=== PATIENT | female | born 1945 | race Caucasian/White ===

== ENCOUNTER 2019-12-04 18:21 | Observation (INO) | payer MEDICARE, SELFPAY ==
--- NOTE | ~2019-12-04 | CT_ITS ---
EXAMINATION: CT abdomen pelvis w con DATE: 12/04/2019 22:15 INDICATION: Abdominal pain and bloody diarrhea TECHNIQUE: Computed tomography (CT) of the abdomen and pelvis was performed with 100 cc Omnipaque 350 intravenous contrast. The dose-length product was 359.52 mGy-cm. Automated exposure control and iter ative reconstruction technique were employed. COMPARISON: None. FINDINGS: Lung bases are unremarkable. Heart size is normal. Large hiatal hernia. 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 No obstruction. Fatty infiltration of the liver. The spleen, pancreas, right adrenal gland and kidneys are unremarkab le. There is a 1.5 cm left adrenal mass, statistically most likely benign adenoma. Gallbladder is pre sent. There is abnormal thickening of the distal transverse and descending colon, compatible with colitis, likely infectious. No evidence for perforation. There is colonic diverticula diverticulosis without e vidence for acute diverticulitis. No lymphadenopathy. No significant vascular abnormality. There is l umbar spondylosis with grade 1 degenerative spondylolisthesis at L4-5. IMPRESSION: 1. Abnormal thickening of the distal transverse and descending colon, compatible with colitis, likely infectious. Correlate clinically. 2: Large hiatal hernia with organoaxial volvulus. Reviewed, dictated and finalized at location A[facility] IMPRESSION: 1. Abnormal thickening of the distal transverse and descending colon, compatibl e with colitis, likely infectious. Correlate clinically. 2: Large hiatal hernia with organoaxial volvulus.
[2019-12-04 19:42] VITALS: BP 150/87; PULSE 102; RESP 16; TEMP 37.6; O2SAT 98
[2019-12-04 19:55] LABS: Basophils Absolute Auto 0.1 K/mm3 (0.0-0.1); Basophils Percent Auto 0.4 % (0.2-1.2); Eosinophils Absolute Auto 0.1 K/mm3 (0-0.3); Eosinophils Percent Auto 0.3 % (0-4.4); Hematocrit 40.1 % (37.0-47.0); Hemoglobin 12.7 g/dL (12.0-15.0); Immature Granulocyte Absolute 0.08 K/mm3 (0.00-0.031); Immature Granulocyte Percent A 0.5 % (0-0.5); Lymphocytes Percent Auto 9.2 % (18.3-44.2); Mean Corpuscular HGB Conc 31.7 g/dl (32-36); Mean Corpuscular Hemoglobin 29.2 pg (26-34); Mean Corpuscular Volume 92.2 fl (80-100); Mean Platelet Volume 9.5 fl (7.4-10.4); Monocytes Percent Auto 5.8 % (2.6-8.5); Neutrophils Absolute Auto 14.5 K/mm3 (1.3-6.7); Neutrophils Percent Auto 83.8 % (45.5-73.1); Platelet Count Result 380 k/mm3 (150-375); Red Blood Count 4.35 M/mm3 (4.2-5.4); Red Cell Distribution Width 14.4 % (11.5-14.5); White Blood Count 17.3 K/mm3 (4.5-10.0)
[2019-12-04 20:03] LABS: Prothrombin Time 12.7 Seconds (11.1-14.7)
[2019-12-04 20:04] LABS: Partial Thromboplastin Time 24.1 SECONDS (22.3-36.8)
[2019-12-04 20:06] LABS: Alanine Aminotransferase 21 U/L (4-35); Albumin Level 4.5 g/dL (3.5-5.1); Alkaline Phosphatase 54 U/L (38-126); Aspartate Amino Transferase 26 U/L (14-36); Bilirubin,Total 0.4 mg/dL (0.2-1.3); Blood Urea Nitrogen 22 mg/dL (7-17); Carbon Dioxide 21 mmol/L (22-30); Chloride 99 mmol/L (98-107); Estimated CRCL calculation 34 ml/min; Estimated Glomerular Filt Rate 48; Glucose 120 mg/dL (65-105); Potassium 4.4 mmol/L (3.4-5.0); Sodium 133 mmol/L (137-145)
[2019-12-04 20:34] VITALS: BP 139/84; PULSE 86; RESP 18; TEMP 36.6; O2SAT 97
--- NOTE | 2019-12-04 20:50 | ED.GIBLEED ---
HPI - GI Bleed General Chief complaint: GI Bleed Stated complaint: RECTAL BLEEDING Time Seen by Provider: 12/04/19 20:49 Source: patient Mode of arrival: ambulatory Limitations: no limitations History of Present Illness HPI Narrative: The pt is a 74 y/o female who presents to the ED c/o diarrhea and rectal bleeding onset today. Pt states that she began to experience this a day after experiencing currently resolved diarrhea. Pt reports that she has been experiencing ABD pain for one day as well. Pt notes nothing improves or worsens her condition. Pt reports chills, nausea, and dizziness, but denies dysuria and hematuria. MD complaint: other (Rectal bleeding) Relieving factors: none Exacerbating factors: none Associated symptoms: abdominal pain (Onset one day ago), nausea and other (Diarrhea (Onset one day ago, resolved), chills, dizziness) Treatments Prior to Arrival: none Related Data Allergies Allergy/AdvReac Type Severity Reaction Status Date / Time Sulfa (Sulfonamide Allergy Intermediate RASH Verified 11/19/11 14:47 Antibiotics) Review of Systems Review of Systems: Narrative: Review of Systems Constitutional: Positive for chills. Gastrointestinal: Positive for nausea, rectal bleeding, abdominal pain onset one day ago, and resolved diarrhea onset one day ago. Genitourinary: Negative for dysuria and hematuria. Neurological: Positive for dizziness. All systems reviewed & are unremarkable except as noted in HPI and below PMFSH Past Medical History Medical History (Updated 12/05/19 @ 00:35 by Korin Hampton MD) Anemia Surgical History Surgical History (Updated 12/04/19 @ 21:11 by Jem Og) H/O: hysterectomy Social History Social History (Updated 12/04/19 @ 21:11 by Jem Og) Smoking status: Never smoker Comments PCP: Dr. Pryor Exam Narrative: Exam Narrative: Constitutional: Appears well-developed. No distress. HENT: Head: Normocephalic. Nose: Nose normal. Mouth/Throat: Oropharynx is clear and moist. Eyes: Conjunctiva are normal. Neck: Normal range of motion. Neck supple. Cardiovascular: Normal rate and regular rhythm. Pulmonary/Chest: Effort normal and breath sounds normal. Abdominal: Soft. There is no tenderness. Musculoskeletal: Normal range of motion. No edema. Neurological: Alert and oriented to person, place, and time. Skin: Skin is warm. No pallor. Psychiatric: Normal mood and affect. Course Consultations Consultation #1: Discussed with Dr. Quintana regarding CT finding. He will consult Date: 12/04/19 Time: 23:20 Consultation #2: Discussed with Dr. Venegas, who agrees to admit. Date: 12/04/19 Time: 23:35 Vital Signs Vital signs: Vital Signs Temperature 37.6 C H 12/04/19 19:42 Pulse Rate 102 H 12/04/19 19:42 Respiratory Rate 16 12/04/19 19:42 Blood Pressure 150/87 H 12/04/19 19:42 Pulse Oximetry 98 12/04/19 19:42 Temperature 36.6 C 12/04/19 20:34 Pulse Rate 82 12/05/19 00:23 Respiratory Rate 18 12/05/19 00:23 Blood Pressure 134/67 12/05/19 00:23 Pulse Oximetry 96 12/05/19 00:23 MDM - GI Bleed Lab Data Result diagrams: 12/04/19 19:48 12/04/19 19:48 Labs: Lab Results 12/04/19 12/04/19 12/04/19 Range/Units 19:48 19:48 19:48 WBC 17.3 H (4.5-10.0) K/mm3 RBC 4.35 (4.2-5.4) M/mm3 Hgb 12.7 (12.0-15.0) g/dL Hct 40.1 (37.0-47.0) % MCV 92.2 (80-100) fl MCH 29.2 (26-34) pg MCHC 31.7 L (32-36) g/dl RDW 14.4 (11.5-14.5) % Plt Count 380 H (150-375) k/mm3 MPV 9.5 (7.4-10.4) fl Immature Gran % (Auto) 0.5 (0-0.5) % Neut % (Auto) 83.8 H (45.5-73.1) % Lymph % (Auto) 9.2 L (18.3-44.2) % Barry % (Auto) 5.8 (2.6-8.5) % Eos % (Auto) 0.3 (0-4.4) % Baso % (Auto) 0.4 (0.2-1.2) % Lymph # (Auto) 1.60 (0.9-3.2) K/mm3 Barry # (Auto) 1.0 H (0.1-0.6) K/mm3 Eos # (Auto) 0.1 (0-0.3) K/mm3 Baso # (Auto) 0.1 (0
[2019-12-04 21:32] VITALS: BP 145/67; PULSE 71; RESP 18; O2SAT 98
[2019-12-04 23:07] VITALS: BP 133/82; PULSE 75; RESP 18; O2SAT 97
[2019-12-05] VITALS (8 sets, daily range): BP systolic 124–146; BP diastolic 59–79; PULSE 67–90; RESP 16–21; TEMP 36.2–36.4; O2SAT 96–100; BMI 28.0
[2019-12-05] MEDS: SODIUM CHLORIDE 0.9% IV 1,000 ML 125 ML IV CONT ×2 (01:11→12:24)
[2019-12-05] MEDS: metroNIDAZOLE 500 MG/ISO 100ML 500 MG/100 ML BAG 100 MG IVPB ×4 (01:13→23:37)
[2019-12-05] MEDS: CIPROFLOXACIN 400 MG/D5W 200ML 200 ML 200 MG IVPB ×2 (02:19→12:23)
[2019-12-05 06:44] LABS: Basophils Absolute Auto 0.1 K/mm3 (0.0-0.1); Basophils Percent Auto 0.4 % (0.2-1.2); Eosinophils Absolute Auto 0.2 K/mm3 (0-0.3); Eosinophils Percent Auto 1.9 % (0-4.4); Hematocrit 35.3 % (37.0-47.0); Hemoglobin 11.1 g/dL (12.0-15.0); Immature Granulocyte Absolute 0.04 K/mm3 (0.00-0.031); Immature Granulocyte Percent A 0.3 % (0-0.5); Lymphocytes Absolute Auto 1.38 K/mm3 (0.9-3.2); Lymphocytes Percent Auto 11.8 % (18.3-44.2); Mean Corpuscular HGB Conc 31.4 g/dl (32-36); Mean Corpuscular Hemoglobin 29.1 pg (26-34); Mean Corpuscular Volume 92.4 fl (80-100); Monocytes Absolute Auto 0.9 K/mm3 (0.1-0.6); Monocytes Percent Auto 7.4 % (2.6-8.5); Neutrophils Absolute Auto 9.1 K/mm3 (1.3-6.7); Neutrophils Percent Auto 78.2 % (45.5-73.1); Platelet Count Result 311 k/mm3 (150-375); Red Blood Count 3.82 M/mm3 (4.2-5.4); Red Cell Distribution Width 14.6 % (11.5-14.5); White Blood Count 11.7 K/mm3 (4.5-10.0)
[2019-12-05 06:55] LABS: Blood Urea Nitrogen 16 mg/dL (7-17); Calcium 9.1 mg/dL (8.4-10.2); Carbon Dioxide 23 mmol/L (22-30); Chloride 102 mmol/L (98-107); Estimated CRCL calculation 42 ml/min; Estimated Glomerular Filt Rate > 60; Glucose 88 mg/dL (65-105); Potassium 3.9 mmol/L (3.4-5.0); Sodium 135 mmol/L (137-145)
[2019-12-05 06:56] LABS: Lactic Acid < 0.5 mmol/L (0.7-2.1); Magnesium 1.9 mg/dL (1.6-2.3)
--- NOTE | 2019-12-05 13:48 | PM.IMHP ---
H&P: HPI History of Present Illness Chief complaint: blood in stool Narrative: Date of Service 12/05/19 The supervising physician for this history and physical is Dr. Anna Roberto. Ms. Silver is a pleasant 74-year-old female with past medical history of iron deficiency anemia, hypertension, and GERD presented to the ED for evaluation of blood in stool. She noted she had recently been traveling home from [place] and had an episode of diarrhea the evening 12/03 after which she took Imodium. She noted 3 or 4 episodes yesterday of watery stool that she described as bright red blood. She noted some abdominal cramping at that time, which is resolved today. She notes some mild nausea without emesis for quite some time , at least several weeks. She denies any personal or family history of colon cancer. She is unsure when her last colonoscopy was, but she believes it was at least 5 years ago and that the results were normal in the past. She reports a 10 lb intentional weight loss over the last 4 months which she achieved by cutting back on soda and other sugar. She denies any fever or chills at home or sick contacts. She denies having eaten any raw or undercooked meats to her knowledge; recent travel to [place] but not overseas; no pets in the home. She has had no further bowel movements here so far. CT abdomen/pelvis shows abnormal colonic wall thickening, compatible with colitis in addition to a large hiatal hernia with organoaxial volvulus. Routine labs show leukocytosis which has improved today, anemia, and a mild hyponatremia. Prior to my encounter, Dr. Quintana has been consulted for the volvulus seen on CT. I have also asked for Dr. Moffett to see the patient in consultation and appreciate his input. She was started on empiric antibiotic therapy with IV ciprofloxacin and metronidazole. The patient is being admitted for evaluation and management of rectal bleeding and colitis. Review of Systems Review of Systems: Narrative: Watery bloody stool mentioned above with some associated abdominal cramping. No BMs or abdominal cramping today. No nausea or vomiting today. She denies chest pain, shortness of breath, dizziness, or calf tenderness. Twelve systems were reviewed with pertinent positives and negatives as per HPI. [facility] Past Medical History Medical History (Updated 12/05/19 @ 17:58 by Myrna Bangura PA-C) Anemia GERD (gastroesophageal reflux disease) Hypertension Surgical History Surgical History H/O bilateral breast biopsy 1989, benign. H/O bladder repair surgery Bladder sling surgery 1973, no urological complications since. H/O: hysterectomy At age [age] years old S/P left knee arthroscopy 11/18/18 Dr Burton Family History Family History Mother Diabetes mellitus Leukemia Heart attack Father Lung cancer Sibling Breast cancer Sibling Breast cancer Sibling Breast cancer Daughter Breast cancer Social History Social History Social History: Ms. Silver lives at home with her in [place]. She is retired from working in a kitchen. She denies alcohol, tobacco, or other substance use. Her PCP is Dr. Destin Pryor. She designates her , Clem Silver, as her surrogate decision maker. Discussed code status and she states she does not wish for any CPR or intubation should these be required, making her code status do not resuscitate. Smoking status: Never smoker Substance use: never Substance use type: does not use Agree to blood products: Yes Meds Home Medications and Allergies Home Medications Medication Instructions Recorded Confirmed Type Lacto.acidophilus-Bif.animalis 1 cap PO DAILY 12/05/19 12/05/19 History [Daily Probiotic] amlodipine 10 mg PO DAILY 12/05/19 12/05/19 History ezetimibe 10 m
--- NOTE | 2019-12-05 16:19 | WPDGICN ---
Assessment and Plan Additional Plan This is a 74-year-old white female patient I am asked to see for blood in her stools. And possible colitis. Patient is followed by Dr. Pryor primary care physician. She is referred through the emergency room. Her history is significant that typically she has been constipated. She has was traveling in [place] began to have difficulty took some laxatives. She subsequently had diarrhea and bright red blood per rectum. Because of the bleeding she went to the emergency room. A CT scan in the abdomen revealed colitis with thickening of a portion of the bowel. She also had evidence of volvulus of the stomach. Patient denies any difficulty swallowing or eating. Because of recent travel she has had minimal oral intake. She denies heartburn. She denies weight loss. Past medical history is significant for a known hiatal hernia. She states she has been told she was anemic in the past. Current medications include fluticasone spray. Ferrous sulfate. Amlodipine. She reports allergy to sulfa and to amoxicillin. Family history is noncontributory. Physical exam reveals her to be alert. Oriented x3. Vital signs stable. HEENT exam unremarkable. Lungs are clear to auscultation and percussion. Heart is without murmur or extra sounds. Abdominal exam bowel sounds are present soft nontender with no organomegaly. Digital external rectal exam unremarkable. Laboratory work reveals CBC white count 11.7. hemoglobin 11.1. hematocrit 35.3. MCV 92. CT scan of the abdomen performed in the emergency room yesterday reveals 1. Abnormal thickening of distal transverse and descending colon. Consistent with infectious colitis. 2. Large hiatal hernia with organoaxial volvulus. Clinically patient has no signs of volvulus. But if so this should be treated surgically. Her rectal bleeding and abdominal pain may be related to colitis. Infectious colitis felt most likely. Stool cultures are suggested should she have stool and broad-spectrum antibiotic coverage. We will plan to evaluate with both colonoscopy an EGD. GI Consult Note Consult date/time: 12/05/19 16:19 HPI: Lyly Silver is a 74 year old female [facility] Past Medical History Medical History (Updated 12/05/19 @ 00:35 by Korin Hampton MD) Anemia Surgical History Surgical History (Updated 12/04/19 @ 21:11 by Jem Og) H/O: hysterectomy Family History Family History (Updated 12/05/19 @ 01:40 by Lucía Henrandez RN) Mother Diabetes mellitus Leukemia Heart attack Father Lung cancer Sibling Breast cancer Sibling Breast cancer Sibling Breast cancer Social History Social History (Updated 12/04/19 @ 21:11 by Jem Og) Smoking status: Never smoker Substance use: never Substance use type: does not use Agree to blood products: Yes Meds Home Medications and Allergies Home Medications Medication Instructions Recorded Confirmed Type Lacto.acidophilus-Bif.animalis 1 cap PO DAILY 12/05/19 12/05/19 History [Daily Probiotic] amlodipine 10 mg PO DAILY 12/05/19 12/05/19 History ezetimibe 10 mg PO DAILY 12/05/19 12/05/19 History ferrous sulfate 325 mg PO DAILY 12/05/19 12/05/19 History fluticasone propionate 50 mcg INTRANASAL DAILY PRN 12/05/19 12/05/19 History Allergies Allergy/AdvReac Type Severity Reaction Status Date / Time amoxicillin Allergy Intermediate Rash Verified 12/05/19 01:42 Sulfa (Sulfonamide Allergy Intermediate RASH Verified 11/19/11 14:47 Antibiotics) Vital Signs Vital Signs - 24 hr 12/04/19 19:42 12/04/19 20:34 12/04/19 21:32 Temperature 37.6 C H 36.6 C Pulse Rate 102 H 86 71 Respiratory Rate 16 18 18 Blood Pressure 150/87 H 139/84 145/67 H Pulse Oximetry 98 97 98 12/04/19 23:07 12/05/19 00:23 12/05/19 00:42 Temperature Pulse Rate 75 82 85 Respiratory Rate 18 18 16 Blood Pressure 133/82 134/67 146/70 H Pulse Oximetry 97 96 97 12/05/19
--- NOTE | 2019-12-05 16:59 | PM.CNGS ---
Assessment and Plan Assessment and plan (1) Hiatal hernia: Onset Date: ~11/2019 Code(s): K44.9 - Diaphragmatic hernia without obstruction or gangrene Status: Acute Assessment and Plan: Agree with plan for EGD to see what the stomach and duodenum look like. Since the patient is asymptomatic I doubt that she will need surgical intervention for her large hiatal hernia. Will await results of the planned EGD by . I have explained to the patient that usually she can control this with appropriate alterations in the way she takes her diet and using perhaps a PPI or H2 thor to help reduce the acid in her stomach. (2) Colitis: Onset Date: ~11/2019 Code(s): K52.9 - Noninfective gastroenteritis and colitis, unspecified Status: Acute Assessment and Plan: Agree with planned for stool studies and antibiotics History of Present Illness Consult details Consult date: 12/05/19 Reason for consult: abdominal pain Requesting physician: Korin Hampton MD Narrative: This is a 74-year-old overweight white female patient I was asked to see for changes identified in her stomach on CT scan of the abdomen and pelvis done last night in the emergency room. She really presented to the emergency room because of blood in her stools and possible colitis. The patient is followed by Dr. Pryor primary care physician in [place]. She is referred through the emergency room. Her history is significant that typically she has been constipated. Then 2 weeks ago she began experiencing some epigastric or lower chest pain. Because of this Dr. Pryor order a chest x-ray. His staff called her and told her that she had hiatal hernia and when she heard this she started coming back on sugar E foods. She has lost about 10 lb since she did that. She and her left last for [place] on hand while there she became ill with abdominal cramping she and her both ate the same foods so does not appear to be a food borne disease. She has was traveling in [place] and began to have difficulty. She took some laxatives. She subsequently had diarrhea and then with a 2nd episode of diarrhea yesterday morning she also had a passage of a good amount of bright red blood per rectum. Because of the bleeding she drank some water before leaving [place] and they drove all the way back year coming to the [facility] emergency room immediately after dropping off a few things at their home in [place]. Following this a workup in the ER a ensued. She was noted to have an elevated white count but fairly normal hemoglobin hematocrit. A CT scan of the abdomen revealed colitis with thickening of a portion of the large bowel. She also had evidence of a large hiatal hernia with possible volvulus of the stomach. Radiologist however stated that he did not see any obstruction. This correlates with her clinical absence of significant chest pain upper abdominal pain or trouble swallowing. Patient denies any difficulty swallowing or eating. Because of recent travel she has had minimal oral intake. She denies heartburn on further questioning in with her daughter present they state that she does complain of periodic symptoms similar to GERD. She has never had an EGD. She has had a previous colonoscopy within the last 5 years and does not remember any abnormalities from that. She denies weight loss blood in that report above in the last 2 weeks. I was consulted mainly because of the possible volvulus of the stomach to be on surgical backup in case this would actually become obstructed and require surgical intervention. Review of Systems Constitutional: Constitutional: Reports as per HPI and Denies headache(s) Eyes: Eyes: Denies loss of vision and Denies eye pain ENT: Reports Normal hearing present, Denies change in voice, Denies dizziness and Denies headache(s) Cardiovascular: Cardiovascular: Denies chest pain and Denies dyspnea Com
[2019-12-05] MEDS: PEG (High)/E-LYTE SOLN 4,000 ML BTL 4000 ML PO (18:22)
[2019-12-05] MEDS: ONDANSETRON INJ 4 MG/2 ML VIAL IV PUSH ×2 (18:41→22:50)
[2019-12-05 22:52] LABS: IFOB Positive Control Positive; Immunochemical Fecal Occult Bl Positive (N)
[2019-12-06] VITALS (8 sets, daily range): BP systolic 122–158; BP diastolic 53–86; PULSE 16–71; RESP 16–99; TEMP 36.1–37.1; O2SAT 65–100
[2019-12-06] MEDS: CIPROFLOXACIN 400 MG/D5W 200ML 200 ML 200 MG IVPB ×2 (00:44→12:55)
[2019-12-06] MEDS: SODIUM CHLORIDE 0.9% IV 1,000 ML 75 ML IV CONT (04:32)
[2019-12-06 05:58] LABS: Basophils Absolute Auto 0.1 K/mm3 (0.0-0.1); Basophils Percent Auto 0.6 % (0.2-1.2); Eosinophils Absolute Auto 0.2 K/mm3 (0-0.3); Eosinophils Percent Auto 2.2 % (0-4.4); Hematocrit 32.6 % (37.0-47.0); Hemoglobin 10.1 g/dL (12.0-15.0); Immature Granulocyte Absolute 0.02 K/mm3 (0.00-0.031); Immature Granulocyte Percent A 0.2 % (0-0.5); Lymphocytes Absolute Auto 1.47 K/mm3 (0.9-3.2); Lymphocytes Percent Auto 14.3 % (18.3-44.2); Mean Corpuscular Hemoglobin 29.3 pg (26-34); Mean Corpuscular Volume 94.5 fl (80-100); Mean Platelet Volume 9.8 fl (7.4-10.4); Monocytes Absolute Auto 0.9 K/mm3 (0.1-0.6); Monocytes Percent Auto 8.4 % (2.6-8.5); Neutrophils Absolute Auto 7.7 K/mm3 (1.3-6.7); Neutrophils Percent Auto 74.3 % (45.5-73.1); Platelet Count Result 311 k/mm3 (150-375); Red Blood Count 3.45 M/mm3 (4.2-5.4); Red Cell Distribution Width 14.4 % (11.5-14.5); White Blood Count 10.3 K/mm3 (4.5-10.0)
[2019-12-06 06:16] LABS: Magnesium 1.9 mg/dL (1.6-2.3); Phosphorus 3.4 mg/dL (2.5-4.5)
[2019-12-06 06:22] LABS: Blood Urea Nitrogen 12 mg/dL (7-17); Calcium 8.4 mg/dL (8.4-10.2); Carbon Dioxide 23 mmol/L (22-30); Chloride 104 mmol/L (98-107); Estimated CRCL calculation 38 ml/min; Estimated Glomerular Filt Rate 54; Glucose 82 mg/dL (65-105); Potassium 3.9 mmol/L (3.4-5.0); Sodium 138 mmol/L (137-145)
--- NOTE | 2019-12-06 07:19 | WPDANESEPP ---
Anes - Eval Pre Procedure Date/Time: 12/06/19 07:19 Pre Op Diagnosis: blood in stool Patient Data Age: 74 Gender: F Height: 1.56 m Weight: 68.5 kg Last Vital Signs Temp 36.1 C L 12/06/19 06:00 Pulse 70 12/06/19 06:00 Resp 16 12/06/19 06:00 BP 122/54 L 12/06/19 06:00 Pulse Ox 95 12/06/19 06:00 Allergies Allergy/AdvReac Type Severity Reaction Status Date / Time amoxicillin Allergy Intermediate Rash Verified 12/05/19 01:42 Sulfa (Sulfonamide Allergy Intermediate RASH Verified 11/19/11 14:47 Antibiotics) Home Medications Medication Instructions Recorded Confirmed Type Lacto.acidophilus-Bif.animalis 1 cap PO DAILY 12/05/19 12/05/19 History [Daily Probiotic] amlodipine 10 mg PO DAILY 12/05/19 12/05/19 History ezetimibe 10 mg PO DAILY 12/05/19 12/05/19 History ferrous sulfate 325 mg PO DAILY 12/05/19 12/05/19 History fluticasone propionate 50 mcg INTRANASAL DAILY PRN 12/05/19 12/05/19 History Laboratory Tests 12/05/19 12/06/19 12/06/19 22:26 05:00 05:00 WBC 10.3 K/mm3 H K/mm3 (4.5-10.0) RBC 3.45 M/mm3 L M/mm3 (4.2-5.4) Hgb 10.1 g/dL L g/dL (12.0-15.0) Hct 32.6 % L % (37.0-47.0) MCV 94.5 fl fl (80-100) MCH 29.3 pg pg (26-34) MCHC 31.0 g/dl L g/dl (32-36) RDW 14.4 % % (11.5-14.5) Plt Count 311 k/mm3 k/mm3 (150-375) MPV 9.8 fl fl (7.4-10.4) Immature Gran % (Auto) 0.2 % % (0-0.5) Neut % (Auto) 74.3 % H % (45.5-73.1) Lymph % (Auto) 14.3 % L % (18.3-44.2) Clark % (Auto) 8.4 % % (2.6-8.5) Eos % (Auto) 2.2 % % (0-4.4) Baso % (Auto) 0.6 % % (0.2-1.2) Lymph # (Auto) 1.47 K/mm3 K/mm3 (0.9-3.2) Clark # (Auto) 0.9 K/mm3 H K/mm3 (0.1-0.6) Eos # (Auto) 0.2 K/mm3 K/mm3 (0-0.3) Baso # (Auto) 0.1 K/mm3 K/mm3 (0.0-0.1) Abs Immat Gran (auto) 0.02 K/mm3 K/mm3 (0.00-0.031) Absolute Neuts (auto) 7.7 K/mm3 H K/mm3 (1.3-6.7) Absolute Nucleated RBC 0.0 K/mm3 K/mm3 (0.0-0.012) Nucleated RBC % 0.0 % % (0.0-0.2) Sodium 138 mmol/L mmol/L (137-145) Potassium 3.9 mmol/L mmol/L (3.4-5.0) Chloride 104 mmol/L mmol/L (98-107) Carbon Dioxide 23 mmol/L mmol/L (22-30) BUN 12 mg/dL mg/dL (7-17) Creatinine 1.00 mg/dL mg/dL (0.7-1.0) Estim Creat Clear Calc 38 ml/min ml/min Estimated GFR 54 L (59 - ) Glucose 82 mg/dL mg/dL (65-105) Calcium 8.4 mg/dL mg/dL (8.4-10.2) Phosphorus Magnesium Stl Occult Blood (IFOB) Positive H (N) 12/06/19 05:00 WBC RBC Hgb Hct MCV MCH MCHC RDW Plt Count MPV Immature Gran % (Auto) Neut % (Auto) Lymph % (Auto) Clark % (Auto) Eos % (Auto) Baso % (Auto) Lymph # (Auto) Clark # (Auto) Eos # (Auto) Baso # (Auto) Abs Immat Gran (auto) Absolute Neuts (auto) Absolute Nucleated RBC Nucleated RBC % Sodium Potassium Chloride Carbon Dioxide BUN Creatinine Estim Creat Clear Calc Estimated GFR Glucose Calcium Phosphorus 3.4 mg/dL mg/dL (2.5-4.5) Magnesium 1.9 mg/dL mg/dL (1.6-2.3) Stl Occult Blood (IFOB) Patient hx anesthesia problems: none Family hx anesthesia problems: none [facility] Past Medical History Medical History Anemia GERD (gastroesophageal reflux disease) Hypertension Surgical History Surgical History H/O bilateral breast biopsy 1989, benign. H/O bladder repair surgery Bladder sling surgery 1973, no urologi
[2019-12-06] MEDS: metroNIDAZOLE 500 MG/ISO 100ML 500 MG/100 ML BAG 100 MG IVPB ×2 (08:44→16:40)
--- NOTE | 2019-12-06 11:11 | PC.NURSE ---
To GI Lab per tawanna, IV saline locked.
--- NOTE | 2019-12-06 11:16 | WPDANESEFPP ---
Anes - Eval Final PreProcedure Day of Procedure 12/06/19 11:16 Patient weight: overweight Heart: regular rate and rhythm Lungs: clear to auscultation Airway: Mallampati scale class II Neurological: alert and oriented Last oral intake: >/= 8 hours ASA classification: III Emergent: no Anesthetic plan: proceed Anesthesia type and monitoring: general GIVS and standard monitoring Other findings: exam per Informed Consent: The patient's anesthetic plan and its attendant risks and benefits were discussed with the patient/family/POA. Questions were solicited and answers provided to the satisfaction of the patient/family/POA.
[2019-12-06] MEDS: LACTATED RINGERS 1,000 ML 150 ML IV CONT (11:27)
[2019-12-06] MEDS: SIMETHICONE ORAL SUSPENSION 20 MG/0.3 ML 30 ML BOTTLE 0.6 ML IRRIGATION (11:58)
--- NOTE | 2019-12-06 15:16 | PM.PNGS ---
Progress Note: A&P Assessment and Plan (1) Colitis: Onset Date: ~11/2019 Code(s): K52.9 - Noninfective gastroenteritis and colitis, unspecified Status: Acute Assessment and Plan: This appears to be the main cause of her GI bleed. See GI recommendations. (2) GERD (gastroesophageal reflux disease): Onset Date: Unknown Code(s): K21.9 - Gastro-esophageal reflux disease without esophagitis Status: Acute Assessment and Plan: Have discussed mechanical means that the patient can try to avoid problems with this. This will include not eating for 2 hours before she goes to bed. Trying to chew her food well every time. Placing blocks under the bedpost of the head of her bed so that the bed is on the slight head-up angle. It may be recommended that she consider a trial of medical therapy with a PPI or H2 thor. ( please consult GI recommendations). (3) Hiatal hernia: Onset Date: ~11/2019 Code(s): K44.9 - Diaphragmatic hernia without obstruction or gangrene Status: Acute Assessment and Plan: Would recommend that the patient set up an appointment in 1-2 months to discuss whether or not surgical indications are present to consider hiatal or paraesophageal hernia repair with my partner Dr. Green. He does these laparoscopically and this is the way that they are typically addressed at this time. Subjective Subjective Date/Time Seen: 12/06/19 13:16 Patient seen in endoscopy lab while recovering from her upper GI scope and colonoscopy. Findings discussed with GI nurses, patient's family and patient. Apparently it was found that she has colitis of the descending colon. Dr. guido her believes this is either ischemic or infectious. He is planning to give her a 7 day course of antibiotics. Her stomach was significantly up in her chest but there was no signs of bleeding, ischemia or significant torsion which was of concern. Note is made of GI recommendation of possible surgical evaluation for repair of this large hiatal hernia. Review of Systems Constitutional: Constitutional: Reports no additional constitutional complaints ENT: Reports other (Mucous Membranes moist.) Cardiovascular: Cardiovascular: Denies dyspnea Respiratory: Respiratory: Denies pain on inspiration and Denies dyspnea Musculoskeletal: Musculoskeletal: Reports other (No calf swelling or edema) Integumentary/Breasts: Skin/Breast: Reports system reviewed and no additional complaints, except as docu Exam Const: General: cooperative, no acute distress, alert and awake Orientation/consciousness: patient oriented x3 HENMT: Mouth: Yes moist mucous membranes Neck: Neck: normal visual inspection Chest: Chest palpation & inspection: normal inspection of the chest Resp: Effort & Inspection: normal respiratory effort Auscultation: clear to auscultation bilaterally Cardio: Jugular venous distension: no JVD Rate: regular rate Rhythm: regular rhythm GI: Inspection: distended Rectal Exam: deferred Other: Mildly distended but not very tender. Neuro: General: patient oriented x3 and moves all extremities Speech: normal speech Extrem: General: normal exam except as noted Psych: Mental Status: mental status grossly normal Speech and movement: Normal speech and movement present Affect: normal affect Thought content: Yes Normal thought content present Objective Data Vital Signs Vital Signs: Vital Signs - 24 hr 12/05/19 20:00 12/05/19 22:00 12/06/19 06:00 Temperature 36.4 C L 36.1 C L Pulse Rate 70 90 70 Respiratory Rate 16 21 H 16 Blood Pressure 145/79 H 122/54 L Pulse Oximetry 97 100 95 12/06/19 11:19 12/06/19 11:57 12/06/19 12:07 Temperature 36.7 C Pulse Rate 68 71 68 Respiratory Rate 16 22 H 24 H Blood Pressure 146/86 H 125/53 L 137/63 Pulse Oximetry 96 99 99 12/06/19 12:17 12/06/19 12:45 12/06/19 13:00 Temperature 37.1 C 36.8 C Pulse Rate 66 16 L 16 L Respirator
--- NOTE | 2019-12-06 19:21 | PM.DS ---
DS: Diagnosis Admitting Diagnosis Admitting Diagnosis: Colitis Discharge Diagnosis (1) Colitis: Onset Date: ~11/2019 Code(s): K52.9 - Noninfective gastroenteritis and colitis, unspecified Status: Acute Assessment and Plan: Date of Service 12/06/19 Ms. Silver is a 74yo F with history of iron deficiency anemia, hypertension, and GERD who presented to the emergency department for evaluation of blood in stool. She noted herself to be in her normal state of health until onset of symptoms the day prior to arrival when she had 3 or 4 episodes of watery stool with red blood with associated abdominal cramping, nausea without vomiting. She had no further episodes during her admission. Imaging showed findings consistent with colitis which was felt to be infectious in nature given her leukocytosis and sudden onset of symptoms. She was started on empiric antibiotic therapy with IV ciprofloxacin and metronidazole. 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 She did not clinically have signs of volvulus on exam. GI was consulted and she underwent EGD and colonoscopy by Dr Moffett 12/06/19. Colonoscopy revealed descending colon colitis and a small polyp removed with snare from sigmoid colon. EGD revealed paraesophageal hiatal hernia. She was additionally started on protonix at discharge. She was feeling much better and tolerating a high fiber diet prior to discharge. She was instructed by Dr Quintana to follow up with Dr Green in 1 to 2 months in the office to discuss elective hernia repair. She was instructed to follow up with PCP in 1 week. She was given Dr Moffett's office number and did not need a follow up appointment at this time, but should call Dr Moffett's office if she continues to notice blood in stool. She was hemodynamically stable for discharge 12/06/19 with oral metronidazole and ciprofloxacin. The following evening 12/07, was notified by Lab that a stool culture was positive for C diff. I contacted the patient to discuss these results over the phone. I called in a 10-day course of oral vancomycin. I instructed Ms. Silver to stop taking the metronidazole and cipro, and to complete the oral vancomycin. She verbalized understanding of these instructions and a teach back method was used over the phone. The patient requested more information on C diff and teaching instructions for C diff and oral vancomycin were printed and mailed to the patient's address at her request. She will follow up with PCP in 1 week. Consultations: Dr Quintana (follow up with Dr Green 1-2 mo) Dr Moffett (no follow up needed at this time; call his office if more bleeding - follow up colonoscopy 5 years). Treated with IV antibiotic therapy with metronidazole and ciprofloxacin in the hospital. Leukocytosis improved prior to discharge. She was discharged with oral flagyl and cipro, then C diff results were positive. She was instructed to stop taking flagyl and cipro and to continuous pickling line pickler the oral vanc to complete the 10-day course. (2) Blood in stool: Code(s): K92.1 - Melena Status: Acute Assessment and Plan: Secondary to colitis. (3) Anemia: Code(s): D64.9 - Anemia, unspecified Status: Acute Assessment and Plan: She notes a history of iron deficiency anemia dating back to 2010 for which she takes oral iron supplementation. Continue iron supplementation. (4) Abnormal CT of the abdomen: Code(s): R93.5 - Abnormal findings on diagnostic imaging of other abdominal regions, including retroperitoneum Status: Acute Assessment and Plan: Dr. Quintana was consulted regarding CT findings of large hiatal hernia with organoaxial volvulus. Clinical exam not consistent with volvulus at this time. Dr Quintana recommends kendricko
--- NOTE | 2019-12-18 13:22 | PC.NURSE ---
Stool cx is negative.
== END 2019-12-06 17:53 | disposition home or self-care (01) ==
LOC: ANHED 23:48 → ANH2MED 23:53
PROVIDERS: Internal Medicine Gastroenterology; Physician Assistant; Surgery; Admitting Provider Family Medicine; Emergency Provider Emergency Medicine; PCP Internal Medicine; Visit Provider Family Medicine
PROC: 0DJ08ZZ Inspection of Upper Intestinal Tract, Via Natural or Artificial Opening Endoscopic (ICD-10-PCS; CPT 43235; principal; 2019-12-06 11:30)
DX: A04.72 Enterocolitis due to Clostridium difficile, not specified as recurrent (principal); K63.5 Polyp of colon; K57.30 Diverticulosis of large intestine without perforation or abscess without bleeding; K64.8 Other hemorrhoids; K21.9 Gastro-esophageal reflux disease without esophagitis; K44.9 Diaphragmatic hernia without obstruction or gangrene; R93.5 Abnormal findings on diagnostic imaging of other abdominal regions, including retroperitoneum; D50.9 Iron deficiency anemia, unspecified; I10 Essential (primary) hypertension; Z88.0 Allergy status to penicillin; Z88.2 Allergy status to sulfonamides
CPT/HCPCS: 45385; 45380; 43235; 36415; 74177; 80048; 80053; 82274; 83605; 83735; 84100; 85025; 85610; 85730; 86850; 86900; 86901; 87015; 87045; 87046; 87269; 87272; 87324; 87427; 87493; 88305; 88342; 89055; 96361; 96365; 96366; 96367; 96375; 96376; 99285; A9270; G0378; J0744; J2405; J2704; J7030; J7120; Q9967

== ENCOUNTER → 2021-04-18 10:20 | Outpatient (CLI) | payer MEDICARE, SELFPAY ==
--- NOTE | ~2021-04-18 | MM_ITS ---
EXAMINATION: MM screening ej BI w gerardo HISTORY: Screening mammogram, family history of breast cancer in her daughter and sister. TECHNIQUE: Craniocaudal and mediolateral oblique 3-D tomosynthesis images were obtained and synthetic 2-D images were generated. CAD analysis was submitted and interpreted. COMPARISON: 04/13/2019, 12/25/2017, 11/12/2016 BREAST PARENCHYMAL COMPOSITION: There are scattered areas of fibroglandular density. FINDINGS: Scattered benign-appearing calcifications are present. There is no evidence of suspicious m ass, calcification, or architectural distortion to suggest malignancy in either breast. There has bee n no suspicious interval change. IMPRESSION: 1. No mammographic evidence of malignancy. 2. Recommend routine screening mammography in one year. BI-RADS Category 2: Benign finding(s). Reviewed, dictated and finalized at location A.
== END ==
PROVIDERS: PCP Internal Medicine; Visit Provider Internal Medicine
DX: Z12.31 Encounter for screening mammogram for malignant neoplasm of breast (principal)
CPT/HCPCS: 77063; 77067

== ENCOUNTER → 2022-08-13 15:34 | Outpatient (CLI) | payer MEDICARE, SELFPAY ==
--- NOTE | ~2022-08-13 | MM_ITS ---
EXAMINATION: MM screening [facility] BI w gerardo HISTORY: Screening TECHNIQUE: Craniocaudal and mediolateral oblique 3-D tomosynthesis images were obtained and synthetic 2-D images were generated. CAD analysis was submitted and interpreted. COMPARISON: Comparison to multiple prior studies sequentially, with oldest reviewed study dated 05/2014. BREAST PARENCHYMAL COMPOSITION: There are scattered areas of fibroglandular density. FINDINGS: There is no evidence of suspicious mass, calcification, or architectural distortion to sugg est malignancy in either breast. There has been no suspicious interval change. IMPRESSION: 1. No mammographic evidence of malignancy. 2. Recommend routine screening mammography in one year. BI-RADS Category 1: Negative Reviewed, dictated and finalized at location A.
== END ==
PROVIDERS: PCP Internal Medicine; Visit Provider Internal Medicine
DX: Z12.31 Encounter for screening mammogram for malignant neoplasm of breast (principal)
CPT/HCPCS: 77063; 77067

== ENCOUNTER 2023-02-23 10:23 | Emergency (ER) | payer MEDICARE, SELFPAY ==
[2023-02-23] VITALS (14 sets, daily range): BP systolic 138–169; BP diastolic 72–92; PULSE 60–98; RESP 12–17; TEMP 36.8; O2SAT 94–98
--- NOTE | 2023-02-23 10:38 | ECG_ITS ---
Measurements Intervals [place] Rate: 79 P: 54 SC: 184 QRS: -42 QRSD: 119 T: 81 QT: 374 QTc: 429 Interpretive Statements SINUS RHYTHM LEFT ANTERIOR HEMIBLOCK LEFT VENTRICULAR HYPERTROPHY AND ST-T CHANGE [VOLTAGE CRITERIA PLUS ST/T ABNORMALITY] ABNORMAL ECG NO PREVIOUS ECG AVAILABLE FOR COMPARISON Electronically Signed On 02-24-2023 7:37:15 CDT by Destin Ybarra M.D.
--- NOTE | 2023-02-23 11:12 | ED.GENADULT ---
HPI - General Adult General Chief complaint: Recheck/Abnormal Lab/Rx Stated complaint: HIGH BP Time Seen by Provider: 02/23/23 10:39 History of Present Illness HPI narrative: Patient is some 7-year-old female who presents ER with concern for elevated blood pressure. Ongoing in the last week. Had her Coreg discontinued. She admits missing all ulcerations for the last 2 months while she had been normal. She has history of sulfa allergy and they felt that Coreg continue sulfa. Patient has noted bleeding this morning. She states up with headache as well as some sinus congestion. Headache improves with Tylenol. She endorses ear pain on the left side that radiates into her jaw. She reports that she has had dizziness when going from sitting to standing. Unsure if it is rotational. No focal weakness or numbness. Patient has recently taken a Z-Marcial. Related Data Home Medications Medication Instructions Recorded Confirmed Lactobacillus 1 cap PO DAILY 12/05/19 12/05/19 acidophilus-Bifidobac.animalis 2.5 billion cell capsule (Daily Probiotic) amlodipine 10 mg tablet 10 mg PO DAILY 12/05/19 12/05/19 ezetimibe 10 mg tablet 10 mg PO DAILY 12/05/19 12/05/19 ferrous sulfate 325 mg (65 mg 325 mg PO DAILY 12/05/19 12/05/19 iron) tablet fluticasone propionate 50 50 mcg intranasal DAILY PRN Nasal 12/05/19 12/05/19 mcg/actuation nasal Congestion spray,suspension Allergies Allergy/AdvReac Type Severity Reaction Status Date / Time amoxicillin Allergy Intermediate Rash Verified 02/23/23 10:44 Sulfa (Sulfonamide Allergy Intermediate RASH Verified 02/23/23 10:44 Antibiotics) Review of Systems Review of Systems: All systems reviewed & are unremarkable except as noted in HPI and below Constitutional: Constitutional: Denies chills, Denies fatigue and Denies fever(s) ENT: Reports dizziness, Reports nasal congestion and Denies sore throat Comments: ear pain Cardiovascular: Cardiovascular: Denies chest pain, Denies rapid heart rate and Denies radiating jaw, neck or arm pain Respiratory: Respiratory: Denies cough and Denies dyspnea Neurologic: Denies syncope, Reports headache(s), Denies focal weakness and Denies numbness [facility] Past Medical History Medical History (Updated 02/23/23 @ 12:25 by John Maurer MD) Anemia GERD (gastroesophageal reflux disease) (Unknown) Hypertension Surgical History Surgical History H/O bilateral breast biopsy 1989, benign. H/O bladder repair surgery Bladder sling surgery 1973, no urological complications since. H/O: hysterectomy At age [age] years old S/P left knee arthroscopy 11/18/18 Dr Burton Family History Family History Mother Diabetes mellitus Leukemia Heart attack Father Lung cancer Sibling Breast cancer Sibling Breast cancer Sibling Breast cancer Daughter Breast cancer Social History Social History Social History: Ms. Silver lives at home with her in [place]. She is retired from working in a kitchen. She denies alcohol, tobacco, or other substance use. Her PCP is Dr. Destin Pryor. She designates her , Clem Silver, as her surrogate decision maker. Discussed code status and she states she does not wish for any CPR or intubation should these be required, making her code status do not resuscitate. Smoking status: Never smoker Substance use: never Substance use type: does not use Agree to blood products: Yes Exam Narrative: GENERAL: Well-appearing, well-nourished, and in no acute distress. HEAD: Normocephalic, atraumatic. EYES: PERRLA and EOMI. ENT: Mucous membranes moist. TMs normal bilaterally. CHEST: Clear to auscultation. No respiratory distress. HEART: Regular rate and rhythm. Normal peripheral pulses. ABDOMEN: Soft, nontender, nondiste
[2023-02-23] MEDS: MECLIZINE HCL 25 MG TABLET PO (11:36)
== END 2023-02-23 12:45 | disposition home or self-care (01) ==
PROVIDERS: Emergency Provider Emergency Medicine; PCP Internal Medicine
DX: R42 Dizziness and giddiness (principal); J32.9 Chronic sinusitis, unspecified; R51.9 Headache, unspecified; I10 Essential (primary) hypertension; K21.9 Gastro-esophageal reflux disease without esophagitis; D64.9 Anemia, unspecified; Z90.710 Acquired absence of both cervix and uterus; I51.7 Cardiomegaly; I44.4 Left anterior fascicular block
CPT/HCPCS: 93005; 99283; A9270

== ENCOUNTER 2024-02-28 13:40 | Outpatient (CLI) | payer MEDICARE, SELFPAY ==
--- NOTE | ~2024-02-28 | MM_ITS ---
EXAMINATION: MM screening ej BI w gerardo HISTORY: Screening mammogram TECHNIQUE: Craniocaudal and mediolateral oblique 3-D tomosynthesis images were obtained and synthetic 2-D images were generated. CAD analysis was submitted and interpreted. COMPARISON: 08/13/2022, 04/18/2021 bilateral screening mammogram examinations BREAST PARENCHYMAL COMPOSITION: There are scattered areas of fibroglandular density. FINDINGS: Benign calcifications. There is no evidence of suspicious mass, calcification, or commercial green building architect ural distortion to suggest malignancy in either breast. There has been no suspicious interval change. IMPRESSION: 1. No mammographic evidence of malignancy. 2. Recommend routine screening mammography in one year. BI-RADS Category 2: Benign finding(s). Reviewed, dictated and finalized at location A.
== END 2024-02-28 13:41 ==
LOC: MICIMG 13:41
PROVIDERS: PCP Internal Medicine; Visit Provider Internal Medicine
DX: Z12.31 Encounter for screening mammogram for malignant neoplasm of breast (principal)
CPT/HCPCS: 77063; 77067